=== PATIENT | male | born 1965 | race Caucasian/White ===

== ENCOUNTER 2024-07-26 08:37 | Outpatient (AMB) | payer MEDICAID, SELFPAY ==
[2024-07-26 08:53] VITALS: BP 120/70; PULSE 61; RESP 18; TEMP 36.3; O2SAT 96; BMI 33.3
--- NOTE | 2024-07-26 08:53 | PD.ORTHCLVIS ---
Vital signs 07/26/24 08:53 Height 1.65 m Height Method Stated Weight 90.775 kg Weight Measurement Method Standing Scale BMI 33.3 BP 120/70 Blood Pressure Source Automatic Cuff Blood Pressure Location Left Upper Arm Position Sitting Respiration 18 Pulse 61 Pulse Source Monitor Temp 97.4 F Temp Source Temporal Artery Scan Pulse Oximetry (%) 96 Oxygen Delivery Method Room Air Med/Allergies Allergies & Medications Allergies ibuprofen Allergy (Verified 07/26/24 08:53) Medication Reconciliation cholecalciferol (vitamin D3) 10 mcg (400 unit) capsule 10 mcg PO QDAY 07/26/24 [History Confirmed 07/26/24] Exam Exam Patient is in no acute distress and is cooperative with the examination today. Breathing is nonlabored. In no respiratory distress. Bilateral extremities were evaluated and demonstrates sensation intact to light touch. Palpable pedal pulses are present. No significant edema is present. Bilateral hips were examined. The patient has no pain with log roll of the hips. Internal rotation to 30 degrees and external rotation to 30 degrees is painless. Negative FADIR. The left knee was examined. The left knee is in varus alignment. Range of motion from 0-115 degrees. Knee is stable to varus and valgus as well as AP translation with <5mm. Patient has a negative McMurrays. There is no pain with patellofemoral compression and no crepitus noted. The knee is tender to palpation medially. The right knee was also examined. The right knee is in varus alignment. Range of motion from 0-120 degrees. Knee is stable to varus and valgus as well as AP translation with <5mm. Patient has a negative McMurrays. There is no pain with patellofemoral compression and no crepitus noted. The knee is tender to palpation medially. X-rays were reviewed from [place] [facility]. This demonstrates bilateral joint space narrowing medially with complete obliteration of the medial joint space Assessment and Plan Problem List (1) Degenerative arthritis of knee, bilateral: Status: Acute Plan: Patient is a 58-year-old male with bilateral knee pain and bilateral knee arthritis. We discussed nonoperative options. The patient would like a cortisone injection today of both knees as he has not tried one. Recommend knee cortisone injections as patient would like to proceed with conservative treatment at this time. The risks and benefits of the procedure were reviewed with the patient and patient gave verbal consent to continue with the procedure. Procedure: performed by Dr. Joshua Using sterile technique the Bilateral knees were thoroughly prepped with alcohol, and approximately 1 cc of Kenalog 40 mg/mL and 4 cc of 1% lidocaine was injected into each knee without resistance into the medial tibial femoral joint space. The patient tolerated the procedure. Office Procedures GNS Level of Care Nursing/Assessment Patient Status: Initial/New Patient Nursing Assessment/Reassesment: Medication Reconciliation, Update PMH in EMR and Vital Signs Coordination of Care: Complex Care and Chronic Disease 1-5, Education Complex Pt/Fam, Consent,records obtained, informed consent, 1 Ins Authorization, Lab and Imaging orders, Results/Orders obtained and Staff clarify orders Special Needs: Language special needs New Patient Charge New Patient Point Assignment: 1124 New Patient Point Charge: GLASS WASHER AND CARRIER Level 4 ([id number]) Surgical Proc/IM SQ injection Major Surgical Procedure: Yes (BILATERAL KNEE INJECTION) Medication Given Medication Given Medication Given: Yes Documented Dose Given: 8 Route: Infiitration Medication Given Medication Given Medication Given: Yes Documented Dose Given: 2 Route: Infiitration Office Meds Xylocaine 10 mg/mL (1 %) injection solution Performing Provider: Homar Joshua MD Performing Location: [facility] Administered by: Homar Joshua MD on 07/26/24 09:56 Dose Route Admin Location Dispensed Lot Number Expiration Date [facility] Surveying Technician 40 mL Infiltration 40 mL [id number] 11/22/27 38793-619-48 [facility] triamcinolone acetonide 40 mg/mL suspension for injection Performing Provider: Homar Joshua MD Performing Location: [facility] Administered by: Homar Joshua MD on 07/26/24 09:56 Dose Route Admin Location Dispensed Lot Number Expiration Date [facility] Surveying Technician 80 mg intra-articular 2 mL [id number] 10/21/25 0814-0293-46 [employer] [place] Intake Visit Data Collection New Patient or Established: New Patient (never been to [facility]) Reason for Visit:: BILATERAL OSTEOARTHRITIS OF KNEE Seen by Clinical Staff ONLY (RN/MA): No Input Output Clerk Required: Yes PCP or OBGYN visit in last 3 months: Yes Hx Now: No Do You Feel Safe at Home: Yes Authorities Contacted: N/A Questionairres Past Medical History Past Medical History Have you ever been diagnosed with any of the following: Respiratory Problems Smoking: No Smoking Cessation Counseling: No Smoking Exposure: No Subjective Visit Visit for: new patient and knee Immunization / Flu Flu Vaccine in the Last 12 Months: No Flu Vaccine Exclusion Criteria: Refused by Patient History of Present Illness Chief complaint: bilateral knee pain 58yo male with a past medical history of bilateral knee osteoarthritis comes to clinic complaining of bl knee pain pain for 2 to 3 years on the right knee and pain for much longer on the left knee. Has no history of any anti-inflammatory use or injections. He is allergic to anti-inflammatories and has a rash Personal History Occupation: NOT EMPLOYED Pain Pain level (0-10): 10 Pain duration: CONSTANT Pain location: inside (medial) and outside (lateral) Pain quality: sharp, dull, aching and other (specify) (SWELLING) Pain timing: increases with activity Associated signs & symptoms: numbness and weakness Ambulatory data Ambulatory device: cane Treatments Improvement with previous injections: No Improvement with PT: No Improvement with NSAIDS: no Review of Systems Review of Systems: All systems negative unless otherwise noted in HPI.
--- NOTE | 2024-07-26 09:14 | XR_ITS ---
Examination: Bilateral knees 2 views Right lateral knee left lateral knee 2 views Bilateral axial knees single view TECHNIQUE: Bilateral AP knees standing single view, bilateral PA knees standing single view 30 degrees flexion Standing right lateral knee left lateral knee 2 views Bilateral axial knees single view total 5 views Exam date and time: July 26, 2024 0936 hours INDICATIONS: Bilateral knee pain 10 years FINDINGS: Moderate osteopenia Severe bilateral narrowing medial joint spaces Bilateral advanced osteoarthritis patellofemoral joints Small knee effusions IMPRESSION: Severe bilateral narrowing medial joint spaces Bilateral advanced osteoarthritis patellofemoral joints
== END 2024-07-26 09:21 | disposition home or self-care (01) ==
PROVIDERS: PCP Physician Assistant; Referring Provider Physician Assistant; Supervising Provider Orthopaedic Surgery Adult Reconstructive Orthopaedic Surgery; Visit Provider Orthopaedic Surgery Adult Reconstructive Orthopaedic Surgery
DX: M25.562 Pain in left knee (principal); M25.561 Pain in right knee; M17.0 Bilateral primary osteoarthritis of knee
CPT/HCPCS: 20610; 73564; 99204; J3301; J3490; G0463

== ENCOUNTER 2024-11-15 09:46 | Outpatient (AMB) | payer MEDICAID, SELFPAY ==
[2024-11-15 09:59] VITALS: BP 122/77; PULSE 71; RESP 18; TEMP 36.6; O2SAT 97; BMI 32.3
--- NOTE | 2024-11-15 09:59 | PD.ORTHCLVIS ---
Vital signs 11/15/24 09:59 Height 1.65 m Height Method Stated Weight 88.054 kg Weight Measurement Method Standing Scale BMI 32.3 BP 122/77 Blood Pressure Source Automatic Cuff Blood Pressure Location Right Upper Arm Position Sitting Respiration 18 Pulse 71 Pulse Source Monitor Temp 97.9 F Temp Source Temporal Artery Scan Pulse Oximetry (%) 97 Oxygen Delivery Method Room Air Med/Allergies Allergies & Medications Allergies ibuprofen Allergy (Verified 11/15/24 09:59) Medication Reconciliation No Known Home Medications 11/15/24 [History Confirmed 11/15/24] Exam Exam Patient is in no acute distress and is cooperative with the examination today. Breathing is nonlabored. In no respiratory distress. Bilateral extremities were evaluated and demonstrates sensation intact to light touch. Palpable pedal pulses are present. No significant edema is present. Bilateral hips were examined. The patient has no pain with log roll of the hips. Internal rotation to 30 degrees and external rotation to 30 degrees is painless. Negative FADIR. The left knee was examined. The left knee is in varus alignment. Range of motion from 0-115 degrees. Knee is stable to varus and valgus as well as AP translation with <5mm. Patient has a negative McMurrays. There is no pain with patellofemoral compression and no crepitus noted. The knee is tender to palpation medially. The right knee was also examined. The right knee is in varus alignment. Range of motion from 0-120 degrees. Knee is stable to varus and valgus as well as AP translation with <5mm. Patient has a negative McMurrays. There is no pain with patellofemoral compression and no crepitus noted. The knee is tender to palpation medially. X-rays were reviewed from [place] [facility]. This demonstrates bilateral joint space narrowing medially with complete obliteration of the medial joint space Assessment and Plan Problem List (1) Degenerative arthritis of knee, bilateral: Status: Acute Plan: Patient is a 58-year-old male with bilateral knee pain and bilateral knee arthritis. We discussed nonoperative options. The patient has failed NSAIDs (also allergic to is), and cortisone injections. He has tried home excercises for several months and was referred to PT previously. He reports the left side is worse and wants to start on this side. The nature and purpose of the total knee replacement, alternative method(s) of treatment, the material risks involved, and the possibility of complications were fully explained to the patient. The patient does NOT have any of the following contraindications to TKA: - Active infection of the knee joint, OR - Active systemic bacteremia, OR - Active skin infection or open wound at surgical site, OR - Neuropathic arthritis, OR - Severe, rapidly progressive neurological disease, OR - Severe medical condition that makes risks of surgery outweigh the potential benefit The patient was told the most common risks and complications associated with a total knee replacement include, but are not limited to: blood clots in the leg, fatal pulmonary embolism, dislocation of the prosthesis, intraoperative and postoperative fractures of the femur or tibia, infection, failure of the prosthesis or grafting materials, complications from anesthesia, reactions to blood transfusions, postoperative leg length inequality, instability of the knee replacement, nerve damage or injury, vascular injury, delayed wound healing, infection, other injury or even . In addition, there are risks associated with anesthesia given during this operation. Also, the patient was told that after undergoing a total knee replacement there may still be persistent pain or disability. The patient was informed that the success of this operation in part depends upon the mechanical devices which are going to be implanted and that these devices can fail or malfunction, and may need to be repaired or replaced and there are no guarantees as to the longevity of this device or its parts and that it or its parts could fail prematurely. The patient was also notified that during the course of surgery, there may be a need to use bone graft from donors, and that any bone graft used will be carefully screened for communicable diseases, including AIDS, hepatitis, Stephen-Creutzfeldt, or other diseases, but despite the screening procedures, there is a small chance that they could contract one of these diseases. Finally, the patient was asked to follow completely and fully with all advice and recommended treatments, and that recovery and ultimate outcome are affected by their compliance with recommended treatment. We discussed the risks, benefits and treatment alternatives, and the patient is interested in proceeding with surgery. We will try to set this up as expeditiously as possible. Office Procedures GNS Level of Care Nursing/Assessment Patient Status: Established Patient Nursing Assessment/Reassesment: Medication Reconciliation, Update PMH in EMR and Vital Signs Coordination of Care: Complex Care and Chronic Disease 1-5, Education Complex Pt/Fam, Consent,records obtained, informed consent, Results/Orders obtained and Staff clarify orders Special Needs: Language special needs Established Patient Charge Established Patient Point Assignment: 95 Established Patient Point Charge: EP Level 3 (80-115) MA Intake Visit Data Collection New Patient or Established: Established Patient (seen at [facility] within 3 years) Reason for Visit:: 3 MONTH FOLLOW UP KNEE INJECTIONS Seen by Clinical Staff ONLY (RN/MA): No Verbal consent obtained for Telemed visit?: No Eligibility Examiner Required: No PCP or OBGYN visit in last 3 months: Yes Hx Now: No Do You Feel Safe at Home: Yes Authorities Contacted: N/A Questionairres Past Medical History Past Medical History Have you ever been diagnosed with any of the following: Respiratory Problems Smoking: No Smoking Cessation Counseling: No Smoking Exposure: No Subjective Visit Visit for: follow up visit, knee and x-rays Immunization / Flu Flu Vaccine in the Last 12 Months: No Flu Vaccine Exclusion Criteria: No Exclusion Criteria History of Present Illness Chief complaint: 3 MONTH KNEE INJECTION F/U 58yo male with a past medical history of bilateral knee osteoarthritis comes to clinic complaining of bl knee pain pain for 2 to 3 years on the right knee and pain for much longer on the left knee. He is allergic to NSAIDS and reports minimal relief with the last injection. He reports the pain is miserable and is affecting his quality of life and happiness. Personal History Occupation: NOT EMPLOYED Red flag PMH: BMI BMI Counceling provided: Yes Pain Pain level (0-10): 10 Pain duration: ALL DAY Pain location: inside (medial), outside (lateral), anterior and posterior Pain quality: sharp, dull and aching Pain timing: increases with activity Associated signs & symptoms: numbness and weakness Ambulatory data Ambulatory device: none Treatments Number of previous injections: 1 Improvement with previous injections: No Improvement with PT: No Improvement with NSAIDS: no Review of Systems Review of Systems: All systems negative unless otherwise noted in HPI.
== END 2024-11-15 10:24 | disposition home or self-care (01) ==
LOC: HODSRG 09:46
PROVIDERS: PCP Physician Assistant; Referring Provider Physician Assistant; Supervising Provider Orthopaedic Surgery Adult Reconstructive Orthopaedic Surgery; Visit Provider Orthopaedic Surgery Adult Reconstructive Orthopaedic Surgery
DX: M17.0 Bilateral primary osteoarthritis of knee (principal); M25.562 Pain in left knee; M25.561 Pain in right knee
CPT/HCPCS: 99213; G0463

== ENCOUNTER 2025-01-13 14:10 | Outpatient (AMB) | payer MEDICAID, SELFPAY ==
[2025-01-13 14:21] VITALS: BP 126/75; PULSE 63; RESP 19; TEMP 36.8; O2SAT 93; BMI 31.5
--- NOTE | 2025-01-13 14:21 | PD.ORTHCLVIS ---
Vital signs 01/13/25 14:21 Height 1.65 m Height Method Stated Weight 85.871 kg Weight Measurement Method Standing Scale BMI 31.5 BP 126/75 Blood Pressure Source Automatic Cuff Blood Pressure Location Left Upper Arm Position Sitting Respiration 19 Pulse 63 Pulse Source Monitor Temp 98.3 F Temp Source Temporal Artery Scan Pulse Oximetry (%) 93 L Oxygen Delivery Method Room Air Med/Allergies Allergies & Medications Allergies ibuprofen Allergy (Verified 01/13/25 14:22) Medication Reconciliation No Known Home Medications 11/15/24 [History Confirmed 01/13/25] Exam Exam Patient is in no acute distress and is cooperative with the examination today. Breathing is nonlabored. In no respiratory distress. Bilateral extremities were evaluated and demonstrates sensation intact to light touch. Palpable pedal pulses are present. No significant edema is present. Bilateral hips were examined. The patient has no pain with log roll of the hips. Internal rotation to 30 degrees and external rotation to 30 degrees is painless. Negative FADIR. The left knee was examined. The left knee is in varus alignment. Range of motion from 0-115 degrees. Knee is stable to varus and valgus as well as AP translation with <5mm. Patient has a negative McMurrays. There is no pain with patellofemoral compression and no crepitus noted. The knee is tender to palpation medially. The right knee was also examined. The right knee is in varus alignment. Range of motion from 0-120 degrees. Knee is stable to varus and valgus as well as AP translation with <5mm. Patient has a negative McMurrays. There is no pain with patellofemoral compression and no crepitus noted. The knee is tender to palpation medially. X-rays were reviewed from [place] [facility]. This demonstrates bilateral joint space narrowing medially with complete obliteration of the medial joint space Assessment and Plan Problem List (1) Degenerative arthritis of knee, bilateral: Status: Acute Plan: Patient is a 58-year-old male with bilateral knee pain and bilateral knee arthritis. We discussed nonoperative options. The patient has failed NSAIDs (also allergic to is), and cortisone injections. He has tried home excercises for several months and was referred to PT previously. He reports the left side is worse and wants to start on this side. The nature and purpose of the total knee replacement, alternative method(s) of treatment, the material risks involved, and the possibility of complications were fully explained to the patient. The patient does NOT have any of the following contraindications to TKA: - Active infection of the knee joint, OR - Active systemic bacteremia, OR - Active skin infection or open wound at surgical site, OR - Neuropathic arthritis, OR - Severe, rapidly progressive neurological disease, OR - Severe medical condition that makes risks of surgery outweigh the potential benefit The patient was told the most common risks and complications associated with a total knee replacement include, but are not limited to: blood clots in the leg, fatal pulmonary embolism, dislocation of the prosthesis, intraoperative and postoperative fractures of the femur or tibia, infection, failure of the prosthesis or grafting materials, complications from anesthesia, reactions to blood transfusions, postoperative leg length inequality, instability of the knee replacement, nerve damage or injury, vascular injury, delayed wound healing, infection, other injury or even . In addition, there are risks associated with anesthesia given during this operation. Also, the patient was told that after undergoing a total knee replacement there may still be persistent pain or disability. The patient was informed that the success of this operation in part depends upon the mechanical devices which are going to be implanted and that these devices can fail or malfunction, and may need to be repaired or replaced and there are no guarantees as to the longevity of this device or its parts and that it or its parts could fail prematurely. The patient was also notified that during the course of surgery, there may be a need to use bone graft from donors, and that any bone graft used will be carefully screened for communicable diseases, including AIDS, hepatitis, Stephen-Creutzfeldt, or other diseases, but despite the screening procedures, there is a small chance that they could contract one of these diseases. Finally, the patient was asked to follow completely and fully with all advice and recommended treatments, and that recovery and ultimate outcome are affected by their compliance with recommended treatment. We discussed the risks, benefits and treatment alternatives, and the patient is interested in proceeding with surgery. We will try to set this up as expeditiously as possible. Office Procedures GNS Level of Care Nursing/Assessment Patient Status: Established Patient Nursing Assessment/Reassesment: Medication Reconciliation, Update PMH in EMR and Vital Signs Coordination of Care: Complex Care and Chronic Disease 1-5, Education Complex Pt/Fam, Consent,records obtained, informed consent, Results/Orders obtained and Staff clarify orders Special Needs: Language special needs Established Patient Charge Established Patient Point Assignment: 95 Established Patient Point Charge: EP Level 3 (80-115) MA Intake Visit Data Collection New Patient or Established: Established Patient (seen at [facility] within 3 years) Reason for Visit:: PRE OP L TKA Seen by Clinical Staff ONLY (RN/MA): No Verbal consent obtained for Telemed visit?: No Mining Machinery Assembler Required: No PCP or OBGYN visit in last 3 months: Yes Hx Now: No Do You Feel Safe at Home: Yes Authorities Contacted: N/A Questionairres Past Medical History Past Medical History Have you ever been diagnosed with any of the following: Respiratory Problems Smoking: No Smoking Cessation Counseling: No Smoking Exposure: No Subjective Visit Visit for: follow up visit, knee and x-rays Immunization / Flu Flu Vaccine in the Last 12 Months: No Flu Vaccine Exclusion Criteria: No Exclusion Criteria History of Present Illness Chief complaint: PRE OP L TKA WALKER WAS GIVEN TO PATIENT TODAY FOR SX 58yo male with a past medical history of bilateral knee osteoarthritis comes to clinic complaining of bl knee pain pain for 2 to 3 years on the right knee and pain for much longer on the left knee. He is allergic to NSAIDS and reports minimal relief with the last injection. He reports the pain is miserable and is affecting his quality of life and happiness. Personal History Occupation: NOT EMPLOYED Red flag PMH: BMI BMI Counceling provided: Yes Pain Pain level (0-10): 10 Pain duration: ALL DAY Pain location: inside (medial), outside (lateral), anterior and posterior Pain quality: sharp, dull and aching Pain timing: increases with activity Associated signs & symptoms: numbness and weakness Ambulatory data Ambulatory device: none Treatments Number of previous injections: 1 Improvement with previous injections: No Improvement with PT: No Improvement with NSAIDS: no Review of Systems Review of Systems: All systems negative unless otherwise noted in HPI.
== END 2025-01-13 14:23 | disposition home or self-care (01) ==
PROVIDERS: PCP Physician Assistant; Referring Provider Physician Assistant; Supervising Provider Orthopaedic Surgery Adult Reconstructive Orthopaedic Surgery; Visit Provider Orthopaedic Surgery Adult Reconstructive Orthopaedic Surgery
DX: M17.0 Bilateral primary osteoarthritis of knee (principal); M25.562 Pain in left knee; M25.561 Pain in right knee
CPT/HCPCS: 99213; G0463

== ENCOUNTER → 2025-01-13 | Outpatient (CLI) | payer MEDICAID, SELFPAY ==
--- NOTE | 2025-01-13 14:56 | XR_ITS ---
Examination: CT left lower extremity, without contrast. 2-D sagittal reconstructions. 2-D coronal reconstructions. 3-D reconstructions. Date and time of exam:January 13, 2025 1519 hours INDICATIONS: Diagnosis primary unilateral osteoarthritis left knee, left knee pain several years CTDI: vol (mGy):26.45 DLP: (mGycm):929 Technique: Multiple 1.25 mm axial sections of the left lower extremity without intravenous contrast have been obtained. 2-D sagittal and coronal reconstructions have been obtained. 3-D reconstructions have been obtained. Low dose protocols were performed. One or more of the following dose reduction techniques were used; automated exposure control, adjustment of the mA and/or KV according to patient size, use of iterative reconstruction technique. Findings: Moderate osteopenia Moderate narrowing left hip joint No left hip fracture or dislocation No avascular necrosis Severe narrowing medial joint space left knee Advanced left knee tricompartment osteoarthritis No fractures No avascular necrosis No patellar dislocation IMPRESSION: Advanced left knee tricompartment osteoarthritis, including severe narrowing medial joint space
== END | disposition home or self-care (01) ==
PROVIDERS: Referring Provider Orthopaedic Surgery Adult Reconstructive Orthopaedic Surgery; Visit Provider Orthopaedic Surgery Adult Reconstructive Orthopaedic Surgery
DX: M17.12 Unilateral primary osteoarthritis, left knee (principal); M25.862 Other specified joint disorders, left knee
CPT/HCPCS: 73700

== ENCOUNTER 2025-01-25 08:25 | Day surgery (SDC) | payer MEDICAID, SELFPAY ==
[2025-01-24 10:05] VITALS: BMI 31.6
[2025-01-24 11:45] LABS: Basophils # (Auto) 0.1 Thou/mm3 (0.0-0.2); Basophils % (Auto) 1 % (0-2.5); Eosinophils # (Auto) 0.2 Thou/mm3 (0.0-0.5); Eosinophils % (Auto) 3 % (0-10); Hematocrit 42.8 % (41.0-53.0); Hemoglobin 14.5 g/dL (13.5-16.0); Immature Granulocytes Auto 0.01 Thou/mm3 (0.00-0.00); Lymphocytes # (Auto) 1.7 Thou/mm3 (1.0-4.8); Lymphocytes % (Auto) 27 % (10-50); Mean Corpuscular HGB Conc 33.9 g/dl (31.0-37.0); Mean Corpuscular Hemoglobin 32.4 pg (25.0-35.0); Mean Corpuscular Volume 96 fL (80-100); Monocytes # (Auto) 0.6 Thou/mm3 (0.0-0.8); Monocytes % (Auto) 9 % (0-12); Neutrophils # (Auto) 4.0 Thou/mm3 (1.8-7.7); Neutrophils % (Auto) 60 % (37-80); Nucleated Red Blood Cell # 0.00 Thou/mm3 (0.00-0.00); Nucleated Red Blood Cell % 0 /100 WBC (0); Platelet Count 230 Thou/mm3 (140-440); RDW Standard Deviation 41.9 fL (35.1-43.9); Red Blood Count 4.48 Miln/mm3 (4.50-5.90); White Blood Count 6.5 Thou/mm3 (3.8-10.6)
[2025-01-24 11:57] LABS: Alanine Aminotransferase 11 U/L (10-49); Albumin, Serum 4.1 gm/dL (3.4-4.8); Albumin/Globulin Ratio 1.9 (1.2-2.2); Alkaline Phosphatase 68 U/L (46-116); Anion Gap 9 (7-16); Aspartate Amino Transferase 17 U/L (0-34); BUN/Creatinine Ratio 18 Ratio (12-20); Bilirubin,Total 0.3 mg/dL (0.3-1.2); Blood Urea Nitrogen 16 mg/dL (9-23); Calcium 9.3 mg/dL (8.3-10.6); Calcium (Corrected) 9.3 mg/dL (8.5-10.1); Carbon Dioxide 28.8 mMol/L (20.0-31.0); Chloride 105 mMol/L (98-107); Creatinine (Component) 0.9 mg/dL (0.6-1.3); Estimated Creatinine Clearance 87.1 mL/min (>60); Globulin 2.2 gm/dL (2.3-3.5); Glucose 97 mg/dL (74-106); Osmolality,Calculated 286 (275-295); Potassium 4.4 mMol/L (3.4-5.1); Sodium 143 mMol/L (136-145); Total Protein 6.3 gm/dL (5.7-8.2); eGFR > 60 See Note
[2025-01-24 11:59] LABS: INR 0.9 (0.9-1.3); Partial Thromboplastin Time 23.5 Seconds (22.0-36.0); Prothrombin Time 10.3 Seconds (9.0-12.2)
[2025-01-25] VITALS (9 sets, daily range): BP systolic 130–163; BP diastolic 76–96; PULSE 52–83; RESP 12–20; TEMP 36.2–36.8; O2SAT 93–98; BMI 32.3
[2025-01-25] MEDS: RINGERS LACTATED 1000 ML 1,000 ML 20 ML IV (09:35)
[2025-01-25] MEDS: PREGABALIN 75 MG CAPSULE PO (09:42)
[2025-01-25] MEDS: ACETAMINOPHEN 325 MG TABLET 650 MG PO (09:43)
--- NOTE | 2025-01-25 10:44 | CHAP ---
Visited briefly with patient giving comfort and prayer.
--- NOTE | 2025-01-25 13:08 | XR_ITS ---
Examination: Left knee 2 views Technique one AP lateral left knee 2 views Date and time: January 25, 2025 1314 hours INDICATIONS: Status post knee arthroplasty FINDINGS: Total left knee arthroplasty. Satisfactory alignment. No fracture. IMPRESSION: Total left knee arthroplasty with satisfactory alignment
--- NOTE | 2025-01-25 13:41 | ESOP_ITS ---
Date of Procedure 01/25/25 Pre Op Diagnosis left knee osteoarthritis Post Op Diagnosis left knee osteoarthritis Procedure left total knee replacement manuela Findings full thickness cartilage loss and osteophytes Procedure Description Indication: The patient is a 59 year old who has a long history of left knee pain. X-rays show degenerative arthritis involving the knee. Over the past several years the patient has had increasing pain, progressive limitation in function. He has failed conservative measures including activity modification, physical therapy, injections, anti-inflammatories, and assistive devices. After a lengthy discussion of the risks and benefits, the patient presents now for total knee replacement. The nature and purpose of the total knee replacement, alternative method(s) of treatment, the material risks involved, and the possibility of complications were fully explained to the patient. The patient was told the most common risks and complications associated with a total knee replacement include, but are not limited to blood clots in the leg, fatal pulmonary embolism, dislocation of the prosthesis, intraoperative and postoperative fractures of the femur or tibia, infection, failure of the prosthesis or grafting materials, complications from anesthesia, reactions to blood transfusions, postoperative leg length inequality, instability of the knee replacement, nerve damage or injury, vascular injury, delayed wound healing, infections, other injury or even . In addition, there are risks associated with anesthesia given during this operation, temporary or permanent numbness on the skin lateral to the incision can be a complication unique to total knee surgery, and kneeling can be painful after knee replacement surgery. Also, the patient was told that after undergoing a total knee replacement there may still be pain or disability. We discussed with the patient that we will be using a robot-assisted technology. We discussed that there is a possibility of converting to manual instrumentation. The patient was informed that the success of this operation in part depends upon the mechanical devices which are going to be implanted and that these devices can fail or malfunction, and may need to be repaired or replaced and there are no guarantees as to the longevity of this device or its part and that it or its parts could fail prematurely. Finally, the patient was asked to follow completely and fully with all advice and recommended treatments, and that recovery and ultimate outcome are affected by their compliance with recommended treatment. Surgical technique: Patient was marked and consented in the pre-operative area. The patient was brought to the operating room and placed on the operating table in a supine position. Prior to positioning, a timeout procedure was performed between the surgeon, the anesthesiologist, and the nursing staff where the patient and the operative side were identified and confirmed. After adequate general anesthetic was obtained, the left lower extremity was prepped and draped in the usual sterile fashion. A weight based dose of Cefazolin were administered within 1 hour prior to incision. The robot was preregistered and calibrated before the incision. The extremity was exsanguinated with an esmarch badge and tourniquet inflated to 250mmHg. A midline incision was made. A median parapatellar arthrotomy was made. The patella was subluxed laterally. A medial release was performed to expose the medial tibia. His femoral and tibial pins were placed through an intra incisional manner for both cases. Every effort was made to ensure that the distalmost aspect of the pin was hung in the second cortex. The arrays were then tightened several times to ensure that it was fixed for the remainder of the case. Both femoral and tibial checkpoints were then placed. We then went through the registration process of the bone. We then assessed the knee deformity and attempted to correct it. We also used the robot to aid in judging laxity in both extension and flexion. Final based on laxity and alignment we changed the preoperative assessment to obtain proper proper implant positioning and to correct deformity. Attention was then placed to the tibia. We made a tibial cut using the robot ensuring that both the MCL and the patella tendon were protected with retractors. We then went to the femur and made the posterior cut followed by the anterior cut and the anterior chamfer. The bone was then removed and we made a distal femur cut and a posterior chamfer cut. We verified all cuts. A trial reduction was performed with a size 5 femoral component and a size 5 keeled tibial component. The patella tracked centrally, and no lateral retinacular release was necessary. The trial implants were removed. The arrays, pins, and checkpoints were all removed. We performed a verification that all pins were removed. The cut bone surfaces were lavaged. A size 5 left femoral component, a size 5 keeled tibial component were impacted into position. The knee was felt to be well balanced in the sagittal and coronal plane. The final 5x10 mm cruciate- substituting articular insert was impacted into the tibial tray. The knee was brought out to full extension, flexed up to 120 degrees. It was stable to varus and valgus stress and appropriately balanced in flexion and extension. The wounds were copiously irrigated following deflation of tourniquet. The medial retinaculum was reapproximated with #1 vicryl and quill. The subcutaneous tissues were closed with 0 and 2-0 interrupted Vicryl. The skin was closed with 3-0 Monofilament V loc suture. A sterile dressing was applied. The patient was transferred to a bed and brought to recovery in stable condition. The patient tolerated the procedure well. There were no intraoperative complications. Sponge and needle counts were correct times 2. As the attending surgeon, Siva blake I was present and performed the entire operation. Grafts/Implants Size 5 CR Femur Size 5 Tibia 10mm poly CS Anesthesia spinal Implants LibriLoop Pathology / specimen None Pathology comment: none Estimated Blood Loss 150 Condition Stable Disposition same day Surgeon Homar Joshua MD Surgical Staff Operation Date: 01/25/25 13:00 Case Staff Anesthesiologist: Will Vazquez RN First Assistant: Ankita Hi
--- NOTE | 2025-01-25 13:41 | XR_ITS ---
Examination: Left knee 2 views Technique one AP lateral left knee 2 views Date and time: January 25, 2025 1435 hours, comparison 01/25/2025 INDICATIONS: Postop left knee replacement FINDINGS: Total left knee arthroplasty. Satisfactory alignment. No fracture. IMPRESSION: Total left knee arthroplasty with satisfactory alignment
--- NOTE | 2025-01-25 13:44 | SUR.PHASEI ---
pt received from OR in recovery bay 5. pt obtunded, breathing unlabored on oxymask 8l, oral airway in place. v/s stable. pt dressing to left lower extremity cdi. report received from Dr. Vazquez and Ro PARR.
[2025-01-25] MEDS: HYDROmorphone INJ 2 MG/ML VIAL 0.4 MG IVP ×3 (13:52→14:09)
[2025-01-25] MEDS: oxyCODONE HCL 5 MG IR TAB PO (14:22)
--- NOTE | 2025-01-25 14:24 | SUR.PHASEII ---
pt able to tolerate oral fluids without difficulty swallowing or nausea/vomiting.
[2025-01-25] MEDS: fentaNYL CIT INJ 50 mCg/ML AMP 2ML 25 MCG IVP (15:19)
--- NOTE | 2025-01-25 16:00 | SUR.PHASEII ---
pt awake and alert, breathing unlabored on room air. v/s stable. pt dressing to left lower extremity cdi. pt cleared by physical therapist Abdulaziz. pt able to ambulate using walker in pacu hallway. d/c instructions given with Brittany and son Gordon in room using filament welder [id number], all questions answered. pt d/c via wheelchair with all belongings.
== END 2025-01-25 16:00 | disposition home or self-care (01) ==
PROVIDERS: Anesthesiology; Referring Provider Orthopaedic Surgery Adult Reconstructive Orthopaedic Surgery; Visit Provider Orthopaedic Surgery Adult Reconstructive Orthopaedic Surgery
PROC: (CPT 27447; principal; 2025-01-25 12:45)
DX: M17.12 Unilateral primary osteoarthritis, left knee (principal)
CPT/HCPCS: 27447; 20985; 36415; 73560; 80053; 85025; 85610; 85730; 97162; A4217; A4649; C1713; C1776; J0690; J1100; J1171; J2250; J2405; J2704; J2795; J3010; J3490; J7120; J7999; A4648; A9270

== ENCOUNTER 2025-02-09 10:59 | Outpatient (AMB) | payer MEDICAID, SELFPAY ==
--- NOTE | 2025-02-09 11:14 | ORTHONT_ITS ---
Vital signs 02/09/25 11:15 Height 1.65 m Height Method Stated Weight 84.992 kg Weight Measurement Method Standing Scale BMI 31.2 BP 153/84 H Blood Pressure Source Automatic Cuff Blood Pressure Location Left Upper Arm Position Sitting Respiration 18 Pulse 72 Pulse Source Monitor Temp 98.2 F Temp Source Temporal Artery Scan Pulse Oximetry (%) 94 L Oxygen Delivery Method Room Air Med/Allergies Allergies & Medications Allergies ibuprofen Allergy (Mild, Verified 02/09/25 11:16) Rash Medication Reconciliation aspirin 81 mg tablet,delayed release 81 mg PO BID #60 tabs 01/25/25 [Rx Confirm ed 02/09/25] doxycycline hyclate 100 mg tablet 100 mg PO BID #14 tabs 01/25/25 [Rx Confirmed 02/09/25] oxycodone 5 mg tablet 5 mg PO Q6H PRN pain #28 tabs 01/25/25 [Rx Confirmed 02/09/25] sennosides 8.6 mg-docusate sodium 50 mg tablet (Senna-S) 1 tab-cap PO QDAY #30 tabs 01/25/25 [Rx Confirmed 02/09/25] acetaminophen 500 mg tablet (Acetaminophen Extra Strength) 1,000 mg (2 x 500 mg) PO Q6H PRN pain #90 tabs 02/09/25 [Rx] gabapentin 300 mg capsule 300 mg PO .qhs #30 caps 02/09/25 [Rx] Exam Exam Patient is in no acute distress and is cooperative with the examination today. Patient has a normal mood and affect. Breathing is nonlabored. In no respiratory distress. Bilateral extremities were evaluated and demonstrates sensation intact to light touch. Palpable pedal pulses are present. No significant edema is present. Left knee incisions clean dry intact. Range of motion 0 to 10 degrees. There is minimal swelling. Assessment and Plan Problem List (1) Degenerative arthritis of knee, bilateral: Status: Acute Plan: Patient is a 58-year-old male with bilateral knee pain and bilateral knee arthritis. He is doing well status post left total knee replacement. He will continue with physical therapy. Will see him back for continued follow-up. We will see him in 4 weeks and we will start him with outpatient physical therapy Office Procedures GNS Level of Care Nursing/Assessment Patient Status: Established Patient Nursing Assessment/Reassesment: Medication Reconciliation, Update PMH in EMR and Vital Signs Coordination of Care: Complex Care and Chronic Disease 1-5, Education Complex Pt/Fam, Consent,records obtained, informed consent, Results/Orders obtained and Staff clarify orders Special Needs: Language special needs Established Patient Charge Established Patient Point Assignment: 95 Established Patient Point Charge: EP Level 3 (80-115) MA Intake Visit Data Collection New Patient or Established: Established Patient (seen at [facility] within 3 years) Reason for Visit:: 2 WEEK L TKA Seen by Clinical Staff ONLY (RN/MA): No Verbal consent obtained for Telemed visit?: No Regulatory Compliance Director Required: No PCP or OBGYN visit in last 3 months: Yes Hx Now: No Do You Feel Safe at Home: Yes Authorities Contacted: N/A Questionairres Past Medical History Past Medical History Have you ever been diagnosed with any of the following: Neurological Problems Seizures: No Cardiology Problems Congestive Heart Failure: No Respiratory Problems Chronic Obstructive Pulmonary Disease (COPD): No Smoking: No Smoking Cessation Counseling: No Smoking Exposure: No Genital/Urinary Problems Renal Disease: No Musculoskeletal Problems Arthritis: Yes Endocrine Problems Diabetes Mellitus Type 1: No Diabetes Mellitus Type 2: No Other Problems Hospitalization: Yes Shingles: No Blood Transfusions: No Anesthesia Reactions: No Chicken Pox: Yes Cancer: No Subjective Visit Visit for: follow up visit, post op #1 and knee Immunization / Flu Flu Vaccine in the Last 12 Months: No Flu Vaccine Exclusion Criteria: No Exclusion Criteria History of Present Illness Chief complaint: Left knee pain Patient is doing well status post left total knee replacement. His pain is minimal. He is not taking any oxycodone Personal History Occupation: NOT EMPLOYED Red flag PMH: BMI BMI Counceling provided: Yes Pain Pain level (0-10): 10 Pain duration: ALL DAY Pain location: inside (medial), outside (lateral), anterior and posterior Pain quality: sharp, dull and aching Pain timing: increases with activity Associated signs & symptoms: numbness and weakness Ambulatory data Ambulatory device: none Treatments Number of previous injections: 1 Improvement with previous injections: No Improvement with PT: No Improvement with NSAIDS: no Review of Systems Review of Systems: All systems negative unless otherwise noted in HPI.
[2025-02-09 11:15] VITALS: BP 153/84; PULSE 72; RESP 18; TEMP 36.8; O2SAT 94; BMI 31.2
== END 2025-02-09 11:22 | disposition home or self-care (01) ==
LOC: HODSRG 10:59
PROVIDERS: PCP Physician Assistant; Referring Provider Physician Assistant; Supervising Provider Orthopaedic Surgery Adult Reconstructive Orthopaedic Surgery; Visit Provider Orthopaedic Surgery Adult Reconstructive Orthopaedic Surgery
DX: M17.0 Bilateral primary osteoarthritis of knee (principal); M25.562 Pain in left knee; M25.561 Pain in right knee; Z96.652 Presence of left artificial knee joint
CPT/HCPCS: 99213; G0463

== ENCOUNTER 2025-03-24 09:31 | Outpatient (AMB) | payer MEDICAID, SELFPAY ==
[2025-03-24 09:41] VITALS: BP 134/81; PULSE 68; RESP 19; TEMP 37.3; O2SAT 94; BMI 33.0
--- NOTE | 2025-03-24 09:41 | ORTHONT_ITS ---
Vital signs 03/24/25 09:41 Height 1.65 m Height Method Stated Weight 90.038 kg Weight Measurement Method Standing Scale BMI 33.0 BP 134/81 H Blood Pressure Source Automatic Cuff Blood Pressure Location Left Upper Arm Position Sitting Respiration 19 Pulse 68 Pulse Source Monitor Temp 99.1 F Temp Source Temporal Artery Scan Pulse Oximetry (%) 94 L Oxygen Delivery Method Room Air Med/Allergies Allergies & Medications Allergies ibuprofen Allergy (Mild, Verified 02/09/25 11:16) Rash Medication Reconciliation aspirin 81 mg tablet,delayed release 81 mg PO BID #60 tabs 01/25/25 [Rx Confirm ed 03/24/25] doxycycline hyclate 100 mg tablet 100 mg PO BID #14 tabs 01/25/25 [Rx Confirmed 03/24/25] oxycodone 5 mg tablet 5 mg PO Q6H PRN pain #28 tabs 01/25/25 [Rx Confirmed 03/24/25] sennosides 8.6 mg-docusate sodium 50 mg tablet (Senna-S) 1 tab-cap PO QDAY #30 tabs 01/25/25 [Rx Confirmed 03/24/25] acetaminophen 500 mg tablet (Acetaminophen Extra Strength) 1,000 mg (2 x 500 mg) PO Q6H PRN pain #90 tabs 02/09/25 [Rx Confirmed 03/24/25] gabapentin 300 mg capsule 300 mg PO .qhs #30 caps 02/09/25 [Rx Confirmed 03/24/25] Exam Exam Patient is in no acute distress and is cooperative with the examination today. Patient has a normal mood and affect. Breathing is nonlabored. In no respiratory distress. Bilateral extremities were evaluated and demonstrates sensation intact to light touch. Palpable pedal pulses are present. No significant edema is present. Left knee incisions clean dry intact. Range of motion 0 to 100 degrees. There is minimal swelling. Assessment and Plan Problem List (1) Degenerative arthritis of knee, bilateral: Status: Acute Plan: Patient is a 58-year-old male with bilateral knee pain and bilateral knee arthritis. He is doing well status post left total knee replacement. We will see him back in 8 weeks. He was a little late to start pt Office Procedures GNS Level of Care Nursing/Assessment Patient Status: Established Patient Nursing Assessment/Reassesment: Medication Reconciliation, Update PMH in EMR and Vital Signs Coordination of Care: Complex Care and Chronic Disease 1-5, Education Complex Pt/Fam, Consent,records obtained, informed consent, Results/Orders obtained and Staff clarify orders Special Needs: Language special needs Established Patient Charge Established Patient Point Assignment: 95 Established Patient Point Charge: EP Level 3 (80-115) MA Intake Visit Data Collection New Patient or Established: Established Patient (seen at [facility] within 3 years) Reason for Visit:: 6 WEEK L TKA FU Seen by Clinical Staff ONLY (RN/MA): No Verbal consent obtained for Telemed visit?: No Administrative Support Coordinator Required: No PCP or OBGYN visit in last 3 months: Yes Hx Now: No Do You Feel Safe at Home: Yes Authorities Contacted: N/A Questionairres Past Medical History Past Medical History Have you ever been diagnosed with any of the following: Neurological Problems Seizures: No Cardiology Problems Congestive Heart Failure: No Respiratory Problems Chronic Obstructive Pulmonary Disease (COPD): No Smoking: No Smoking Cessation Counseling: No Smoking Exposure: No Genital/Urinary Problems Renal Disease: No Musculoskeletal Problems Arthritis: Yes Endocrine Problems Diabetes Mellitus Type 1: No Diabetes Mellitus Type 2: No Other Problems Hospitalization: Yes Shingles: No Blood Transfusions: No Anesthesia Reactions: No Chicken Pox: Yes Cancer: No Subjective Visit Visit for: follow up visit, post op #2 and knee (LEFT) Immunization / Flu Flu Vaccine in the Last 12 Months: No Flu Vaccine Exclusion Criteria: No Exclusion Criteria History of Present Illness Chief complaint: Left knee pain Patient is doing well status post left total knee replacement. His pain is minimal. He just started PT Personal History Occupation: NOT EMPLOYED Red flag PMH: BMI BMI Counceling provided: Yes Pain Pain level (0-10): 8 Pain duration: AFTER PT Pain location: anterior Pain quality: aching Pain timing: increases with activity Associated signs & symptoms: numbness and weakness Ambulatory data Ambulatory device: none Treatments Number of previous injections: 1 Improvement with previous injections: No Improvement with PT: No Improvement with NSAIDS: no Review of Systems Review of Systems: All systems negative unless otherwise noted in HPI.
--- NOTE | 2025-03-24 09:52 | XR_ITS ---
EXAMINATION: Bilateral AP knees single view Left knee PA and lateral standing axial left knee 3 views TECHNIQUE: Bilateral AP knees standing single view Left knee PA standing flexion, standing lateral, axial left knee 3 views total 4 views Date and time: March 24, 2025, 1001 hours INDICATIONS: Surgery to the left knee 10 years ago, knee pain 2 days FINDINGS: Advanced narrowing medial joint space right knee Total left knee arthroplasty. Satisfactory alignment. No loosening of the prosthetic components. No fracture No patellar dislocation IMPRESSION: Advanced area medial joint space right knee Total left knee arthroplasty with satisfactory alignment
== END 2025-03-24 09:55 | disposition home or self-care (01) ==
LOC: HODSRG 09:31
PROVIDERS: PCP Physician Assistant; Referring Provider Physician Assistant; Supervising Provider Orthopaedic Surgery Adult Reconstructive Orthopaedic Surgery; Visit Provider Orthopaedic Surgery Adult Reconstructive Orthopaedic Surgery
DX: Z47.1 Aftercare following joint replacement surgery (principal); Z96.652 Presence of left artificial knee joint; M25.562 Pain in left knee; M25.561 Pain in right knee; M17.11 Unilateral primary osteoarthritis, right knee
CPT/HCPCS: 73564; 99213; G0463

== ENCOUNTER 2025-05-23 14:18 | Outpatient (AMB) | payer MEDICAID, SELFPAY ==
--- NOTE | 2025-05-23 14:39 | PD.ORTHCLVIS ---
Vital signs 05/23/25 14:41 Height 1.65 m Height Method Stated Weight 94.914 kg Weight Measurement Method Standing Scale BMI 34.8 BP 143/87 H Blood Pressure Source Automatic Cuff Blood Pressure Location Left Upper Arm Position Sitting Respiration 18 Pulse 66 Pulse Source Monitor Temp 97.8 F Temp Source Temporal Artery Scan Pulse Oximetry (%) 93 L Oxygen Delivery Method Room Air Med/Allergies Allergies & Medications Allergies ibuprofen Allergy (Mild, Verified 05/23/25 14:43) Rash Medication Reconciliation aspirin 81 mg tablet,delayed release 81 mg PO BID #60 tabs 01/25/25 [Rx Confirmed 05/23/25] doxycycline hyclate 100 mg tablet 100 mg PO BID #14 tabs 01/25/25 [Rx Confirmed 05/23/25] oxycodone 5 mg tablet 5 mg PO Q6H PRN pain #28 tabs 01/25/25 [Rx Confirmed 05/23/25] sennosides 8.6 mg-docusate sodium 50 mg tablet (Senna-S) 1 tab-cap PO QDAY #30 tabs 01/25/25 [Rx Confirmed 05/23/25] acetaminophen 500 mg tablet (Acetaminophen Extra Strength) 1,000 mg (2 x 500 mg) PO Q6H PRN pain #90 tabs 02/09/25 [Rx Confirmed 05/23/25] gabapentin 300 mg capsule 300 mg PO .qhs #30 caps 03/24/25 [Rx Confirmed 05/23/25] Exam Exam Patient is in no acute distress and is cooperative with the examination today. Patient has a normal mood and affect. Breathing is nonlabored. In no respiratory distress. Bilateral extremities were evaluated and demonstrates sensation intact to light touch. Palpable pedal pulses are present. No significant edema is present. Left knee incisions clean dry intact. Range of motion 0 to 100 degrees. There is minimal swelling. Assessment and Plan Problem List (1) Degenerative arthritis of knee, bilateral: Status: Acute Plan: Patient is a 58-year-old male with bilateral knee pain and bilateral knee arthritis. He is doing well status post left total knee replacement. We will see him back in 16 weeks The patient is asking for primary disability reports it is from her hands. He is upset that his disability claim got denied. I discussed with him that I am seeing him for his knee and his knee is now replaced and is doing well. We recommend that he see his primary care provider for these issues Office Procedures GNS Level of Care Nursing/Assessment Patient Status: Established Patient Nursing Assessment/Reassesment: Medication Reconciliation, Update PMH in EMR and Vital Signs Coordination of Care: Complex Care and Chronic Disease 1-5, Education Complex Pt/Fam, Consent,records obtained, informed consent, Results/Orders obtained and Staff clarify orders Established Patient Charge Established Patient Point Assignment: 95 Established Patient Point Charge: EP Level 3 (80-115) MA Intake Visit Data Collection New Patient or Established: Established Patient (seen at [facility] within 3 years) Reason for Visit:: L TKA FU 2MTH Seen by Clinical Staff ONLY (RN/MA): No Verbal consent obtained for Telemed visit?: No Skip Hoist Engineer Required: No PCP or OBGYN visit in last 3 months: Yes Hx Now: No Do You Feel Safe at Home: Yes Authorities Contacted: N/A Questionairres Past Medical History Past Medical History Have you ever been diagnosed with any of the following: Neurological Problems Seizures: No Cardiology Problems Congestive Heart Failure: No Respiratory Problems Chronic Obstructive Pulmonary Disease (COPD): No Smoking: No Smoking Cessation Counseling: No Smoking Exposure: No Genital/Urinary Problems Renal Disease: No Musculoskeletal Problems Arthritis: Yes Endocrine Problems Diabetes Mellitus Type 1: No Diabetes Mellitus Type 2: No Other Problems Hospitalization: Yes Shingles: No Blood Transfusions: No Anesthesia Reactions: No Chicken Pox: Yes Cancer: No Subjective Visit Visit for: follow up visit Immunization / Flu Flu Vaccine in the Last 12 Months: No Flu Vaccine Exclusion Criteria: No Exclusion Criteria History of Present Illness Chief complaint: Left knee pain Patient is doing well status post left total knee replacement. His pain is minimal. Personal History Occupation: NOT EMPLOYED Red flag PMH: BMI BMI Counceling provided: Yes Pain Pain level (0-10): 8 Pain duration: AFTER PT Pain location: anterior Pain quality: aching Pain timing: increases with activity Associated signs & symptoms: numbness and weakness Ambulatory data Ambulatory device: none Treatments Number of previous injections: 1 Improvement with previous injections: No Improvement with PT: No Improvement with NSAIDS: no Review of Systems Review of Systems: All systems negative unless otherwise noted in HPI.
[2025-05-23 14:41] VITALS: BP 143/87; PULSE 66; RESP 18; TEMP 36.6; O2SAT 93; BMI 34.8
== END 2025-05-23 15:40 | disposition home or self-care (01) ==
LOC: HODSRG 14:18
PROVIDERS: PCP Physician Assistant; Referring Provider Physician Assistant; Supervising Provider Orthopaedic Surgery Adult Reconstructive Orthopaedic Surgery; Visit Provider Orthopaedic Surgery Adult Reconstructive Orthopaedic Surgery
DX: Z47.1 Aftercare following joint replacement surgery (principal); Z96.652 Presence of left artificial knee joint; M17.11 Unilateral primary osteoarthritis, right knee; M25.562 Pain in left knee; M25.561 Pain in right knee
CPT/HCPCS: 99213; G0463